=== PATIENT | female | born 1990 | race Two or more races ===

== ENCOUNTER → 2017-07-29 06:59 | Outpatient (CLI) | payer BC, SELFPAY | PROVIDERS: Visit Provider Obstetrics & Gynecology | DX: Z12.4 Encounter for screening for malignant neoplasm of cervix (principal); Z01.419 Encounter for gynecological examination (general) (routine) without abnormal findings ==

== ENCOUNTER → 2018-08-29 15:35 | Outpatient (CLI) | payer BC, SELFPAY | PROVIDERS: Visit Provider Obstetrics & Gynecology | DX: Z12.4 Encounter for screening for malignant neoplasm of cervix (principal) | CPT/HCPCS: 88175; G0145 ==

== ENCOUNTER 2021-09-26 14:29 | Outpatient (CLI) | payer BC, SELFPAY ==
[2021-10-03 16:43] LABS: HPV Reflexed? NOT INDICATED
== END 2021-09-26 23:59 | disposition home or self-care (01) ==
LOC: LABSPEC 14:31
PROVIDERS: Visit Provider Obstetrics & Gynecology
DX: Z12.4 Encounter for screening for malignant neoplasm of cervix (principal)
CPT/HCPCS: 88175; G0145